=== PATIENT | female | born 1975 | race Caucasian/White ===

== ENCOUNTER → 2017-02-09 | Outpatient (CLI) | payer BC | END | disposition home or self-care (01) | LOC: RADECHMAIN 12:14 | PROVIDERS: ATTEND Family Medicine | DX: I47.1 Supraventricular tachycardia (principal) | CPT/HCPCS: 93225; 93226 ==

== ENCOUNTER → 2017-06-21 | Outpatient (CLI) | payer BC ==
--- NOTE | 2017-06-21 10:22 | MM ---
Reason for exam: follow-up at short interval from prior study. Last mammogram was performed 10 months ago. History: Patient is nulliparous. Right US Cyst Aspiration of the right breast, January 30, 2011. Took hormonal contraceptives for 1 month beginning at age 36. Physical Findings: Nurse did not find any significant physical abnormalities on exam. MG Diagnostic Mammo w CAD [facility] Bilateral CC and MLO view(s) were taken. Prior study comparison: September 01, 2016, bilateral MG screening mammo w CAD. March 26, 2016, left breast MG diagnostic mammo LT w CAD. September 17, 2015, left breast MG 3d work up w/cad LT. There are scattered fibroglandular densities. No suspicious abnormality. No significant new findings when compared with previous films. These results were verbally communicated with the patient and result sheet given to the patient on 06/21/17. ASSESSMENT: Negative, BI-RAD 1 RECOMMENDATION: Routine screening mammogram of both breasts in 1 year.
--- NOTE | 2017-06-21 10:25 | USB ---
Reason for exam: clinical finding. History: Patient is nulliparous. Right US Cyst Aspiration of the right breast, January 30, 2011. Took hormonal contraceptives for 1 month beginning at age 36. Indicated problem(s): pain in the left breast. US Breast LT Left breast ultrasound includes all four quadrants, the retroareolar region and axilla. Finding demonstrates no cystic or solid lesion seen. No sonographic cystic or solid mass. No suspicious sonographic finding. These results were verbally communicated with the patient and result sheet given to the patient on 06/21/17. ASSESSMENT: Negative, BI-RAD 1 RECOMMENDATION: Routine screening mammogram of both breasts in 1 year.
== END | disposition home or self-care (01) ==
LOC: RADMAMWWP 08:53
PROVIDERS: ATTEND Family Medicine
DX: N64.4 Mastodynia (principal); N63 Unspecified lump in breast
CPT/HCPCS: 76641; G0204

== ENCOUNTER → 2018-08-05 | Outpatient (CLI) | payer BC ==
--- NOTE | 2018-08-08 11:25 | MM ---
Reason for exam: screening (asymptomatic). Last mammogram was performed 1 year and 1 month ago. History: Patient is nulliparous. Right US Cyst Aspiration of the right breast, January 30, 2011. Took hormonal contraceptives for 1 month beginning at age 36. Physical Findings: A clinical breast exam by your physician is recommended on an annual basis and results should be correlated with mammographic findings. MG 3D Screening Mammo W/Cad Bilateral CC and MLO view(s) were taken. Prior study comparison: June 21, 2017, bilateral MG diagnostic mammo w CAD [facility]. September 01, 2016, bilateral MG screening mammo w CAD. The breast tissue is heterogeneously dense. This may lower the sensitivity of mammography. There is chronic nodularity in the right breast. There is no discrete abnormality. ASSESSMENT: Benign, BI-RAD 2 RECOMMENDATION: Routine screening mammogram of both breasts in 1 year.
== END | disposition home or self-care (01) ==
LOC: RADMAMWWP 07:40
PROVIDERS: ATTEND Family Medicine
DX: Z12.31 Encounter for screening mammogram for malignant neoplasm of breast (principal)
CPT/HCPCS: 77063; 77067

== ENCOUNTER → 2019-08-23 | Outpatient (CLI) | payer BC ==
--- NOTE | 2019-08-23 08:40 | MM ---
Reason for exam: additional evaluation requested from prior study. Last mammogram was performed 1 year and 1 month ago. History: Patient is nulliparous. Right US Cyst Aspiration of the right breast, January 30, 2011. Took hormonal contraceptives for 1 month beginning at age 36. Physical Findings: Nurse did not find any significant physical abnormalities on exam. MG 3D Diag Mammo W/Cad [facility] Bilateral CC and MLO view(s) were taken. Prior study comparison: August 05, 2018, bilateral MG 3d screening mammo w/cad. June 21, 2017, bilateral MG diagnostic mammo w CAD [facility]. There are scattered fibroglandular densities. No suspicious abnormality. No significant new findings when compared with previous films. These results were verbally communicated with the patient and result sheet given to the patient on 08/23/19. ASSESSMENT: Incomplete: need additional imaging evaluation, BI-RAD 0 RECOMMENDATION: Ultrasound of the left breast. (pain)
--- NOTE | 2019-08-23 08:41 | USB ---
Reason for exam: additional evaluation requested from prior study. History: Patient is nulliparous. Right US Cyst Aspiration of the right breast, January 30, 2011. Took hormonal contraceptives for 1 month beginning at age 36. US Breast Limited LT Left limited breast ultrasound including focal area of concern, retroareolar and axilla demonstrates no cystic or solid lesion seen. No sonographic correlate for the patient's pain. These results were verbally communicated with the patient and result sheet given to the patient on 08/23/19. ASSESSMENT: Negative, BI-RAD 1 RECOMMENDATION: Routine screening mammogram of both breasts in 1 year. Manage patient on a clinical basis.
== END | disposition home or self-care (01) ==
LOC: RADMAMWWP 07:36
PROVIDERS: ATTEND Family Medicine
DX: N64.4 Mastodynia (principal); N63.21 Unspecified lump in the left breast, upper outer quadrant; R92.8 Other abnormal and inconclusive findings on diagnostic imaging of breast
CPT/HCPCS: 77062; 77066

== ENCOUNTER → 2020-09-30 | Outpatient (CLI) | payer BC ==
--- NOTE | 2020-09-30 09:24 | MM ---
Reason for exam: screening (asymptomatic). Last mammogram was performed 1 year and 1 month ago. History: Patient is nulliparous. Right US Cyst Aspiration of the right breast, January 30, 2011. Took hormonal contraceptives for 1 month beginning at age 36. Physical Findings: A clinical breast exam by your physician is recommended on an annual basis and results should be correlated with mammographic findings. MG 3D Screening Mammo W/Cad Bilateral CC and MLO view(s) were taken. Prior study comparison: August 23, 2019, bilateral MG 3d diag mammo w/cad [facility]. August 05, 2018, bilateral MG 3d screening mammo w/cad. There are scattered fibroglandular densities. There is no discrete abnormality. ASSESSMENT: Negative, BI-RAD 1 RECOMMENDATION: Routine screening mammogram of both breasts in 1 year.
== END | disposition home or self-care (01) ==
LOC: RADMAMWWP 07:38
PROVIDERS: ATTEND Family Medicine
DX: Z12.31 Encounter for screening mammogram for malignant neoplasm of breast (principal)
CPT/HCPCS: 77063; 77067

== ENCOUNTER → 2021-09-03 | Outpatient (CLI) | payer BC ==
--- NOTE | 2021-09-03 09:59 | MM ---
Reason for exam: additional evaluation requested from abnormal screening. Last mammogram was performed less than 1 month ago. History: Patient is nulliparous. Right US Cyst Aspiration of the right breast, January 30, 2011. Took hormonal contraceptives for 1 month beginning at age 36. Physical Findings: Nurse did not find any significant physical abnormalities on exam. MG 3D Diag Mammo W/Cad LT LM, spot compression CC, and spot compression MLO view(s) were taken of the left breast. Prior study comparison: August 20, 2021, mammogram, performed at [facility]. September 30, 2020, bilateral MG 3d screening mammo w/cad. August 23, 2019, bilateral MG 3d diag mammo w/cad [facility]. August 05, 2018, bilateral MG 3d screening mammo w/cad. June 21, 2017, bilateral MG diagnostic mammo w CAD [facility]. There are scattered fibroglandular densities. Central left breast focal asymmetry disperses on additional views. These results were verbally communicated with the patient and result sheet given to the patient on 09/03/21. ASSESSMENT: Benign, BI-RAD 2 RECOMMENDATION: Return to routine screening mammogram schedule for both breasts.
== END | disposition home or self-care (01) ==
LOC: RADMAMWWP 07:09
PROVIDERS: ATTEND Family Medicine
DX: N64.89 Other specified disorders of breast (principal)
CPT/HCPCS: 77061; 77065

== ENCOUNTER → 2022-09-04 | Outpatient (CLI) | payer BC ==
--- NOTE | 2022-09-07 10:14 | MM ---
Reason for Exam: Screening (asymptomatic). Last mammogram was performed 1 year(s) and 1 month(s) ago. Patient History: Menarche at age 15. Patient has no children. Perimenopausal. Hormonal Contraceptives for 1 month starting at age 36. 01/30/2011, Cyst Aspiration on the Right side. Risk Values: Deena 5 year model risk: 0.9%. NCI Lifetime model risk: 9.5%. Prior Study Comparison: 08/05/2018 Bilateral Screening Mammogram, [facility]. 08/23/2019 Bilateral Diagnostic Mammogram, [facility]. 09/30/2020 Bilateral Screening Mammogram, [facility]. 08/20/2021 Screening Mammogram, [facility]. 09/03/2021 Left Diagnostic Mammogram, [facility]. Tissue Density: There are scattered fibroglandular densities. Findings: Analyzed By CAD. Benign-appearing bilateral axillary lymph nodes redemonstrated. There is no suspicious group of microcalcifications or new suspicious mass in either breast. Overall Assessment: Negative, BI-RAD 1 Management: Screening Mammogram of both breasts in 1 year. A clinical breast exam by your physician is recommended on an annual basis and results should be correlated with mammographic findings. Electronically signed and approved by: Luis Boogie M.D.
== END | disposition home or self-care (01) ==
LOC: RADMAMWWP 09:29
PROVIDERS: ATTEND Family Medicine
DX: Z12.31 Encounter for screening mammogram for malignant neoplasm of breast (principal)
CPT/HCPCS: 77063; 77067

== ENCOUNTER → 2023-09-06 | Outpatient (CLI) | payer BC ==
--- NOTE | 2023-09-06 08:18 | MM ---
Reason for Exam: Screening (asymptomatic). Last screening mammogram was performed 12 month(s) ago. Patient History: Menarche at age 15. Patient has no children. Premenopausal. Hormonal Contraceptives for 1 month starting at age 36. 01/30/2011, Cyst Aspiration on the Right side. Risk Values: Deena 5 year model risk: 0.9%. NCI Lifetime model risk: 9.3%. Prior Study Comparison: 08/20/2021 Screening Mammogram, [facility]. 09/03/2021 Left Diagnostic Mammogram, [facility]. 09/04/2022 Bilateral MG 3D screening mammo w/cad, [facility]. Tissue Density: There are scattered fibroglandular densities. Findings: Analyzed By CAD. There is no suspicious group of microcalcifications or new suspicious mass in either breast. Overall Assessment: Negative, BI-RAD 1 Management: Screening Mammogram of both breasts in 1 year. A clinical breast exam by your physician is recommended on an annual basis and results should be correlated with mammographic findings. Note on Deena scores and lifetime risk: 1. A Deena score greater than 3% is considered moderate risk. If this is the case, consider specialist referral to assess eligibility for a risk reducing agent. If overall lifetime risk for the development of breast cancer is 20% or higher, the patient may qualify for future screening with alternating mammogram and breast MRI. Electronically signed and approved by: Lew Call D.O.
== END | disposition home or self-care (01) ==
LOC: RADMAMWWP 07:50
PROVIDERS: ATTEND Family Medicine
DX: Z12.31 Encounter for screening mammogram for malignant neoplasm of breast (principal)
CPT/HCPCS: 77063; 77067

== ENCOUNTER → 2024-09-07 | Outpatient (CLI) | payer BC ==
--- NOTE | 2024-09-10 15:49 | MM ---
Reason for Exam: Screening (asymptomatic). Last screening mammogram was performed 12 month(s) ago. Patient History: Menarche at age 15. Patient has no children. Premenopausal. Hormonal Contraceptives for 1 month starting at age 36. 01/30/2011, Cyst Aspiration on the Right side. Risk Values: Deena 5 year model risk: 0.9%. NCI Lifetime model risk: 9.2%. Prior Study Comparison: 09/03/2021 Left Diagnostic Mammogram, [facility]. 09/04/2022 Bilateral MG 3D screening mammo w/cad, [facility]. 09/06/2023 Bilateral MG 3D screening mammo w/cad, [facility]. Tissue Density: There are scattered areas of fibroglandular density. Findings: Analyzed By CAD. The pattern is symmetrical. Pattern appears stable there is increasing distortion in the upper right breast mediolateral oblique view. Additional evaluation is recommended with compression and mediolateral views No suspicious groups of microcalcifications, spiculated or lobular masses, architectural distortion or other secondary signs of malignancy are mammographically apparent. Overall Assessment: Incomplete: need additional imaging evaluation, BI-RAD 0 Management: Diagnostic Mammogram of the right breast. A negative mammogram report should not preclude additional follow up of suspicious palpable abnormalities. Patient should continue monthly self breast exam. A clinical breast exam by your physician is recommended on an annual basis and results should be correlated with mammographic findings. Note on Deena scores and lifetime risk: 1. A Deena score greater than 3% is considered moderate risk. If this is the case, consider specialist referral to assess eligibility for a risk reducing agent. 2. If overall lifetime risk for the development of breast cancer is 20% or higher, the patient may qualify for future screening with alternating mammogram and breast MRI. [facility], , 09/10/2024 3:46 PM. Electronically signed and approved by: Michoacano Sears D.O. Radiologis
== END | disposition home or self-care (01) ==
LOC: RADMAMWWP 09:48
PROVIDERS: ATTEND Family Medicine
DX: Z12.31 Encounter for screening mammogram for malignant neoplasm of breast (principal); R92.323 Mammographic fibroglandular density, bilateral breasts
CPT/HCPCS: 77063; 77067

== ENCOUNTER → 2024-09-15 | Outpatient (CLI) | payer BC ==
--- NOTE | 2024-09-15 11:46 | MM ---
Reason for Exam: Additional evaluation requested from abnormal screening. Last screening mammogram was performed less than 1 month ago. Patient History: Menarche at age 15. Patient has no children. Premenopausal. Hormonal Contraceptives for 1 month starting at age 36. 01/30/2011, Cyst Aspiration on the Right side. Risk Values: Deena 5 year model risk: 0.9%. NCI Lifetime model risk: 9.2%. Prior Study Comparison: 07/17/2011 Right Diagnostic Ultrasound, [facility]. 08/31/2015 Bilateral Screening Mammogram, [facility]. 09/17/2015 Left Diagnostic Mammogram, [facility]. 03/26/2016 Left Diagnostic Mammogram, [facility]. 09/01/2016 Bilateral Screening Mammogram, [facility]. 06/21/2017 Bilateral Diagnostic Mammogram, [facility]. 06/21/2017 Left Diagnostic Ultrasound, [facility]. 08/05/2018 Bilateral Screening Mammogram, [facility]. 08/23/2019 Bilateral Diagnostic Mammogram, [facility]. 08/23/2019 Left Diagnostic Ultrasound, [facility]. 09/30/2020 Bilateral Screening Mammogram, [facility]. 08/20/2021 Screening Mammogram, [facility]. 09/03/2021 Left Diagnostic Mammogram, [facility]. 09/04/2022 Bilateral MG 3D screening mammo w/cad, [facility]. 09/06/2023 Bilateral MG 3D screening mammo w/cad, [facility]. 09/07/2024 Bilateral MG 3D screening mammo w/cad, [facility]. Tissue Density: Right: There are scattered areas of fibroglandular density. Findings: Analyzed By CAD. Linear band of increased density upper right breast is unchanged dating back to 2019. No masses or distortion seen at this time. Overall Assessment: Benign, BI-RAD 2 Management: Screening Mammogram of both breasts in 1 year. . Results were given to the patient verbally at the time of exam. Patient should continue monthly self-breast exams. A clinical breast exam by your physician is recommended on an annual basis. This exam should not preclude additional follow-up of suspicious palpable abnormalities. Note on Deena scores and lifetime risk: 1. A Deena score greater than 3% is considered moderate risk. If this is the case, consider specialist referral to assess eligibility for a risk reducing agent. 2. If overall lifetime risk for the development of breast cancer is 20% or higher, the patient may qualify for future screening with alternating mammogram and breast MRI. [facility], , 09/15/2024 11:43 AM. Electronically signed and approved by: Ok Boyd M.D. Radiologis
== END | disposition home or self-care (01) ==
LOC: RADMAMWWP 10:05
PROVIDERS: ATTEND Family Medicine
DX: R92.8 Other abnormal and inconclusive findings on diagnostic imaging of breast (principal); R92.321 Mammographic fibroglandular density, right breast
CPT/HCPCS: 77061; 77065

== ENCOUNTER → 2025-02-02 | Outpatient (CLI) | payer BC ==
[2025-02-02 15:22] LABS: Basophils # (A) 0.06 X 10*3/uL (0.00-0.10); Basophils % (A) 0.7 %; Eosinophils # (A) 0.21 X 10*3/uL (0.04-0.35); Eosinophils % (A) 2.5 %; HCT 39.5 % (37.2-46.3); HGB 12.9 g/dL (12.0-15.0); Lymphocytes # (A) 2.75 X 10*3/uL (0.90-5.00); Lymphocytes % (A) 32.7 %; MCH 28.4 pg (27.0-32.0); MCHC 32.7 g/dL (32.0-37.0); MCV 86.8 FL (80.0-97.0); Mean Platelet Volume 9.6 FL (9.5-12.2); Monocytes # (A) 0.52 X 10*3/uL (0.20-1.00); Monocytes % (A) 6.2 %; NRBC Per 100 WBC 0 X 10*3/uL (0.00-0.01); Neutrophils # (A) 4.83 X 10*3/uL (1.80-7.70); Neutrophils % (A) 57.5 %; Platelet Count 362 X 10*3/uL (140-440); RBC 4.55 X 10*6/uL (4.10-5.20); RDW 13.6 % (11.5-14.5)
[2025-02-02 15:48] LABS: Chol/HDL Ratio 3.39 Ratio; LDL Cholesterol,Calculated 82.8 mg/dL (0.0-131.0)
[2025-02-02 15:49] LABS: ALT 10 U/L (8-44); AST 14 U/L (13-35); Albumin 3.4 g/dL (3.8-4.9); Albumin/Globulin Ratio 1.48 Ratio (1.60-3.17); Alkaline Phosphatase 86 U/L (41-126); BUN/Creat Ratio 21.83 Ratio (12.00-20.00); Blood Urea Nitrogen 13.1 mg/dL (9.0-27.0); Calcium 8.4 mg/dL (8.7-10.3); Carbon Dioxide 25.8 mmol/L (21.6-31.8); Chloride 104 mmol/L (96-109); Globulin 2.3 g/dL (1.6-3.3); Glucose 89 mg/dL (70-110); Sodium 139 mmol/L (135-145); T4, Free (Free Thyroxine) 1.12 ng/dL (0.80-1.80); Total Bilirubin 0.3 mg/dL (0.3-1.2); Total Protein 5.7 g/dL (6.2-8.2)
== END | disposition home or self-care (01) ==
LOC: LABWHC1 09:41
PROVIDERS: ATTEND Family Medicine
DX: I10 Essential (primary) hypertension (principal); E66.812 Obesity, class 2; F41.9 Anxiety disorder, unspecified; F43.21 Adjustment disorder with depressed mood; N95.9 Unspecified menopausal and perimenopausal disorder
CPT/HCPCS: 36415; 80053; 80061; 83036; 84439; 84443; 85025

== ENCOUNTER → 2025-05-07 | Outpatient (CLI) | payer BC ==
[2025-05-07 20:41] LABS: Follicle Stimulating Hormone 27.5 mIU/mL
== END | disposition home or self-care (01) ==
LOC: LABWHC1 15:34
PROVIDERS: ATTEND Physician Assistant
DX: N95.1 Menopausal and female climacteric states (principal)
CPT/HCPCS: 36415; 82670; 83001; 84144; 84403